=== PATIENT | male | born 1960 | race Hispanic/Latino ===

== ENCOUNTER 2020-04-29 20:26 | Emergency (ER) | payer OTHER ==
[2020-04-29] MEDS ORDERED: LIDOCAINE HCL-MPF 1% 2ML VIAL ONE (20:47)
[2020-04-29] MEDS ORDERED: CEFTRIAXONE SODIUM 1 GM ONE (20:47)
[2020-04-29] MEDS ORDERED: ACETAMINOPHEN-CODEINE 300/30MG TAB ONE (20:47)
== END 2020-04-29 22:00 | disposition home or self-care (01) ==
LOC: EDH 20:26
DX: U07.1 COVID-19 (principal); H92.02 Otalgia, left ear; R50.9 Fever, unspecified; I10 Essential (primary) hypertension; Z72.0 Tobacco use
CPT/HCPCS: 87426; 99283; J0696; J3490

== ENCOUNTER 2021-01-29 14:41 | Emergency (ER) | payer MEDICAID, OTHER ==
[~2021-01-29] VITALS: Ht 160 cm; Wt 99.8 kg
[2021-01-29] MEDS ORDERED: 0.9%NACL 1000ML 1,000 ML IV ONE (15:00)
[2021-01-29] MEDS ORDERED: ACETAMINOPHEN 500 MG TABLET PO ONE (15:00)
[2021-01-29] MEDS ORDERED: GUAIFENESIN-DM 200/20 MG 10 ML PO ONE (15:00)
[2021-01-29 15:11] VITALS: BP 141/88
[2021-01-29] MEDS ORDERED: ACETAMINOPHEN 500 MG TABLET ONE (16:24)
[2021-01-29] MEDS ORDERED: GUAIFENESIN-DM 200/20 MG 10 ML ONE (16:24)
[2021-01-29] MEDS ORDERED: IBUP-2070 PO (17:36)
[2021-01-29] MEDS ORDERED: ACET-3194 PO (17:36)
[2021-01-29] MEDS ORDERED: AMOX-429 PO (17:36)
== END 2021-01-29 17:44 | disposition home or self-care (01) ==
LOC: EDH 14:41
DX: J40 Bronchitis, not specified as acute or chronic (principal); Z20.822 Contact with and (suspected) exposure to COVID-19; E11.9 Type 2 diabetes mellitus without complications; I10 Essential (primary) hypertension; Z79.1 Long term (current) use of non-steroidal anti-inflammatories (NSAID); F17.200 Nicotine dependence, unspecified, uncomplicated
CPT/HCPCS: 71045; 87635; 87804 ×2; 87880; 99284; C9803

== ENCOUNTER → 2021-06-27 | Outpatient (CLI) | payer MEDICAID, OTHER ==
[~2021-06-27] MED LIST: ACET-3194 PO; AMOX-429 PO; IBUP-2070 PO
== END | disposition home or self-care (01) ==
LOC: RAH 12:05
PROVIDERS: ATTEND Internal Medicine Cardiovascular Disease
DX: I50.22 Chronic systolic (congestive) heart failure (principal); I70.0 Atherosclerosis of aorta; M47.815 Spondylosis without myelopathy or radiculopathy, thoracolumbar region
CPT/HCPCS: 71046

== ENCOUNTER → 2023-10-30 | Outpatient (CLI) | payer OTHER ==
[~2023-10-30] MED LIST changes: -ACET-3194 PO; +AMIO100T4 PO; +AMLO-258 PO; -AMOX-429 PO; +ASCO500T19 PO; +FERR325T22 PO; +FERS325 PO; +FURO80TA3 PO; -IBUP-2070 PO; +LOSA50TA64 PO; +METO-408 PO; +MVIT PO
[2023-10-30 12:36] LABS: ALBUMIN 3.5 g/dL (3.5-5.0); BILIRUBIN,TOTAL 0.3 mg/dL (0.2-1.0); CREATININE 4.5 mg/dL (0.5-1.3); TOTAL PROTEIN, SERUM 7.4 g/dL (6.0-8.3)
== END | disposition home or self-care (01) ==
LOC: LAB 10:29
PROVIDERS: ATTEND Internal Medicine Cardiovascular Disease
DX: I50.32 Chronic diastolic (congestive) heart failure (principal); I48.0 Paroxysmal atrial fibrillation; D68.59 Other primary thrombophilia
CPT/HCPCS: 36415; 80053; 80151; 82542

== ENCOUNTER 2023-11-03 00:04 | Emergency (ER) | payer OTHER ==
[~2023-11-03] VITALS: Ht 160 cm; Wt 101.6 kg
[2023-11-03 00:42] LABS: BASOPHILS # (AUTO) 0.01 K/uL (0.00-0.20); BASOPHILS % (AUTO) 0.1 % (0.0-5.0); EOSINOPHILS # (AUTO) 0.18 K/uL (0.00-0.70); EOSINOPHILS % (AUTO) 2.5 % (0.0-8.0); IMMATURE GRANULOCYTE ABSOLUTE 0.08 K/uL (0-1); LYMPHOCYTES # (AUTO) 0.9 K/uL (1.0-4.8); LYMPHOCYTES % (AUTO) 12.7 % (21.0-51.0); MEAN CORPUSCULAR HEMOGLOBIN 29.3 pg (27.0-33.0); MEAN CORPUSCULAR HGB CONC 31.8 g/dL (32.0-36.0); MEAN CORPUSCULAR VOLUME 92.4 fL (79-99); MONOCYTES # (AUTO) 0.5 K/uL (0.1-1.0); MONOCYTES % (AUTO) 6.3 % (3.0-13.0); NEUTROPHILS # (AUTO) 5.6 K/uL (1.8-7.7); NEUTROPHILS % (AUTO) 77.3 % (40.0-77.0); NUCLEATED RED BLOOD CELLS 0.6 % (0.0-0.19); PLATELET COUNT (AUTO) 140 K/uL (130-400); RED BLOOD CELL COUNT(AUTO) 1.84 MIL/uL (4.50-6.20); RED CELL DISTRIBUTION WIDTH 16.2 % (11.0-15.5); WHITE BLOOD COUNT (AUTO) 7.3 K/uL (4.8-10.8)
[2023-11-03 00:54] LABS: BILIRUBIN,TOTAL 0.2 mg/dL (0.2-1.0); CREATININE 5.4 mg/dL (0.5-1.3); POTASSIUM 3.8 mmol/L (3.5-5.1); TOTAL PROTEIN, SERUM 5.9 g/dL (6.0-8.3)
[2023-11-03 05:05] LABS: APPEARANCE,URINE CLEAR (CLEAR); BILIRUBIN,URINE NEGATIVE (NEGATIVE); COLOR,URINE LIGHT-YELLOW (YELLOW); GLUCOSE, URINE (UA) NEGATIVE (NEGATIVE); KETONES,URINE NEGATIVE (NEGATIVE); LEUKOCYTE ESTERASE ,URINE NEGATIVE Leu/uL (NEGATIVE); NITRATE,URINE NEGATIVE (NEGATIVE); OCCULT BLOOD,URINE NEGATIVE (NEGATIVE); PROTEIN,URINE NEGATIVE (NEGATIVE); UROBILINOGEN,URINE 0.2 mg/dL (0.2-1.0)
[2023-11-03 05:06] LABS: ADD UA MICROSCOPIC NO
[2023-11-03 07:45] VITALS: BP 127/70; PULSE 77; RESP 18; O2SAT 99
== END 2023-11-03 07:59 | disposition home or self-care (01) ==
LOC: EDH 00:04
DX: D64.9 Anemia, unspecified (principal); N17.9 Acute kidney failure, unspecified; E11.9 Type 2 diabetes mellitus without complications; I10 Essential (primary) hypertension; F17.200 Nicotine dependence, unspecified, uncomplicated; I25.10 Atherosclerotic heart disease of native coronary artery without angina pectoris; Z79.899 Other long term (current) drug therapy
CPT/HCPCS: 99285; 36430; 71045; 80053; 85025; 86850; 86900; 86901; 86923; 81003; 36415; 93005; P9016 ×2

== ENCOUNTER → 2023-12-07 | Outpatient (CLI) | payer OTHER | END | disposition home or self-care (01) | LOC: LAB 09:41 | PROVIDERS: ATTEND Internal Medicine Cardiovascular Disease | DX: D64.9 Anemia, unspecified (principal) | CPT/HCPCS: 36415; 80151 ==

== ENCOUNTER → 2024-02-16 | Outpatient (CLI) | payer OTHER | END | disposition home or self-care (01) | LOC: LAB 14:32 | PROVIDERS: ATTEND Internal Medicine Cardiovascular Disease | DX: N40.1 Benign prostatic hyperplasia with lower urinary tract symptoms (principal); N52.9 Male erectile dysfunction, unspecified | CPT/HCPCS: 36415; 84153 ==